=== PATIENT | female | born 1985 | race Caucasian/White ===

== ENCOUNTER 2019-01-12 18:22 | Emergency (ER) | payer MEDICAID ==
[2019-01-12] MEDS: IBUPROFEN 800 MG TAB PO (20:48)
[2019-01-12] MEDS: METHOCARBAMOL 500 MG TAB PO (20:48)
== END 2019-01-12 22:53 | disposition home or self-care (01) ==
LOC: FTE 18:22
DX: S40.012A Contusion of left shoulder, initial encounter (principal); V43.52XA Car driver injured in collision with other type car in traffic accident, initial encounter
CPT/HCPCS: 81025; 99283